=== PATIENT | male | born 2005 | race Caucasian/White ===

== ENCOUNTER 2024-05-27 07:16 | Inpatient (IN) ==
[2024-05-27] MEDS ORDERED: LORazepam 2 mg VIAL 1 ml IV PUSH PRN (09:51)
[2024-05-27] MEDS ORDERED: Lorazepam PYXIS KEY PRN (10:05)
[2024-05-27 12:24] LABS: Rapid COVID-19 Molecular Undetected (Undetected)
[2024-05-30] MEDS: LORazepam 2 mg VIAL 1 ml IV PUSH PRN (01:43)
[2024-05-30] MEDS ORDERED: Ondansetron 4 mg VIAL 2 MG/ML 2 ml VIAL IV PRN (09:07)
[2024-05-30] MEDS: levETIRAcetam IV 1,500 MG in NS 0.9% 100 ml BAG 100 ML IVPB ONE (11:11)
[2024-05-31 09:49] VITALS: BP 124/81
== END 2024-05-31 14:24 | disposition home or self-care (01) | DRG 53 ==
LOC: MEDTELE 07:16
PROVIDERS: ADMIT Psychiatry & Neurology Neurology; ATTEND Psychiatry & Neurology Neurology